=== PATIENT | male | born 1990 | race Caucasian/White ===

== ENCOUNTER 2019-11-01 19:34 | Emergency (ER) | payer SELFPAY | END 2019-11-01 19:55 | disposition left against medical advice (07) | LOC: CHSED 19:38 | PROVIDERS: Emergency Provider Surgery | DX: Z53.8 Procedure and treatment not carried out for other reasons (principal) | CPT/HCPCS: 99199 ==

== ENCOUNTER 2022-06-21 08:39 | Emergency (ER) | payer SELFPAY ==
--- NOTE | 2022-06-21 08:43 | ED.GENADULT ---
HPI - General Adult General Chief complaint: Abdominal Pain Stated complaint: pain under ribs nausea Time Seen by Provider: 06/21/22 08:43 Source: patient and RN notes reviewed History of Present Illness HPI narrative: Patient is a 32-year-old male who presents the urgent care with his spouse with complaints of epigastric pains for the last 3 days. Patient states he is also had a couple episodes of nausea and vomiting and has not been able to eat due to the pain. Patient has not experienced GERD before. States that happened after eating [employer]. Patient states he does have a poor diet consisting of a lot of fast food and high fatty fried foods. Patient has not taken anything [id number] for his symptoms. No other acute complaints. No acute distress noted. Patient aware of the plan of care. Some parts of this dictation were generated by voice recognition software and may contain typographical and/or grammatical inaccuracies. Related Data Allergies Allergy/AdvReac Type Severity Reaction Status Date / Time No Known Allergies Allergy Verified 06/21/22 08:56 Review of Systems Review of Systems: CONSTITUTIONAL: Denies fever, chills, or sweats. EYES: Denies visual changes, redness, or discharge. ENT: Denies rhinorrhea, congestion, sore throat, or otalgia. CARDIOVASCULAR: Denies chest pain, palpitations, or edema. RESPIRATORY: Denies cough or dyspnea. GASTROINTESTINAL: Reports of epigastric pain, nausea and vomiting GENITOURINARY: Denies dysuria or hematuria. SKIN: Denies rash or itching. MUSCULOSKELETAL: Denies back pain, joint pain, or myalgia. NEUROLOGIC: Denies headache, numbness, or weakness. All other systems reviewed are negative, except as documented in HPI. PMFSH Social History Social History Smoking status: Smoker, status unknown Comments At the time of my signature, I reviewed and agree with the nursing past medical, surgical, social, and family history. There is no relevant family history pertinent to the patient complaint. Exam Narrative: GENERAL: This is a well-nourished, well-developed patient, in no apparent distress. HEAD: normocephalic, atraumatic. EYES: PERRL. Sclera clear/white. Vision is grossly intact. EARS: External ears normal NOSE: External nose normal with no obvious nasal discharge, nares without redness, no rhinorrhea. THROAT: Mucous membranes moist NECK: Neck supple CARDIOVASCULAR: Regular rate and rhythm without murmurs, gallops, or rubs. RESPIRATORY: Clear to auscultation. Breath sounds equal bilaterally. No wheezes, rales, or rhonchi. GASTROINTESTINAL: Abdomen soft, moderate epigastric tenderness, nondistended. Bowel sounds are active. SKIN: warm, intact with no suspicious lesions or rash, good texture and turgor. NEURO: awake, alert, and oriented to person, place and time. There were no obvious focal neurologic abnormalities. EXTREMITIES: No clubbing, cyanosis, or edema. Course Course Level of Care: Express Care Visit Vital Signs Vital signs: Vital Signs Temperature 98.5 F 06/21/22 08:45 Pulse Rate 64 06/21/22 08:45 Respiratory Rate 16 06/21/22 08:45 Blood Pressure 135/68 06/21/22 08:45 Pulse Oximetry 100 06/21/22 08:45 Oxygen Delivery Room Air 06/21/22 08:45 Temperature 98.5 F 06/21/22 08:45 Pulse Rate 64 06/21/22 08:45 Respiratory Rate 16 06/21/22 08:45 Blood Pressure 135/68 06/21/22 08:45 Pulse Oximetry 100 06/21/22 08:45 Oxygen Delivery Room Air 06/21/22 08:45 Reviewed reviewed Medical Decision Making MDM Narrative Medical decision making narrative: Advised the patient to take the omeprazole prescription as prescribed for the next 2 weeks. Thereafter, you may use Pepcid/Tums as needed. If you do not have any relief over the next 24 to 36 hours or pain worsens with nausea, vomiting or chest pain?go to the emergency room. Our facility is unable to rule out esophagitis or any other complications from GERD or cardiac. The
[2022-06-21 08:45] VITALS: BP 135/68; PULSE 64; RESP 16; TEMP 36.9; O2SAT 100
[2022-06-21] MEDS: BELLADONNA ALK/PHENOB ELIX 10 ML, MAG HYDROX/ALUMINUM HYD/SIMETH 30 ML, LIDOCAINE HCL 2... PO (09:05)
== END 2022-06-21 09:25 | disposition home or self-care (01) ==
PROVIDERS: Emergency Provider Nurse Practitioner Family
DX: K21.9 Gastro-esophageal reflux disease without esophagitis (principal)
CPT/HCPCS: 99213; A9270; G0463